=== PATIENT | male | born 1965 | race Caucasian/White ===

== ENCOUNTER 2024-03-31 05:53 | Outpatient (CLI) | payer BC ==
[~2024-03-31 05:53] MED LIST: ASPI81TA52 PO; ATOR-2 PO; LOP25T PO; LOSA25TA41 PO; NITR0.4T48 SL; OMEG1CAP61 PO; TICA90TA2 PO
== END 2024-03-31 23:59 | disposition home or self-care (01) ==
LOC: MRI02 05:53
PROVIDERS: ATTEND Orthopaedic Surgery
DX: S83.241A Other tear of medial meniscus, current injury, right knee, initial encounter (principal); X58.XXXA Exposure to other specified factors, initial encounter; M25.561 Pain in right knee; Y93.89 Activity, other specified; Y92.89 Other specified places as the place of occurrence of the external cause; Y99.8 Other external cause status
CPT/HCPCS: 73721